=== PATIENT | female | born 1935 | race Caucasian/White ===

== ENCOUNTER 2017-05-14 14:46 | Inpatient (IN) | payer OTHER ==
[~2017-05-14] VITALS: Ht 160 cm; Wt 56.6 kg
[~2017-05-14 14:46] MED LIST: ANALGESIC325 MG PO; BONIVA150 MG PO; Levothroid,Synthroid PO; METOPROLOL SUCC25 MG PO; NORCO 5/3251 TABLET PO; XALATAN2.5 ML BOTH EYES; XARELTO20 MG PO; ZENPEP DR 5,001 EACH PO
[2017-05-14 15:23] LABS: BASOPHIL (%) 0.4 % (0-1); EOSINOPHIL (%) 0.8 % (0-5); HEMATOCRIT 39.4 % (36.0-46.0); HEMOGLOBIN 13.3 G/DL (11.9-15.5); IMMATURE GRANULOCYTE (%) 0.2 % (0.0-0.7); LYMPHOCYTE (%) 14.3 % (15-42); LYMPHOCYTE COUNT 0.7 K/uL (1.0-2.8); MCHC 33.8 G/DL (30.0-36.0); MCV 94.7 FL (83-99); MONOCYTE (%) 10.3 % (3-12); MONOCYTE COUNT 0.5 K/uL (0-0.8); NEUTROPHIL COUNT 3.7 K/uL (1.8-6.4); PLATELET COUNT 208 K/uL (156-360); RBC DIS.WIDTH-CV 13.3 % (11.8-14.6); RBC DIS.WIDTH-SD 46.5 % (39-53); RED BLOOD COUNT 4.16 M/uL (3.80-5.20)
[2017-05-14 15:31] LABS: INTER. NORMALIZED RATIO 1.3
[2017-05-14 15:33] LABS: PTT 32.3 SEC (25-37)
[2017-05-14 15:45] LABS: TROP-I INTERPRETATION NEGATIVE; TROPONIN-I 0.04 ng/mL (0.0-0.30)
[2017-05-14 15:47] LABS: ALBUMIN 3.7 g/dL (3.2-4.8); CHLORIDE 102 mEq/L (99-109); POTASSIUM 3.9 mEq/L (3.7-5.4); SODIUM 138 mEq/L (136-147)
[2017-05-14 15:48] LABS: MAGNESIUM 1.9 mg/dL (1.3-2.7)
[2017-05-14 15:50] LABS: GLUCOSE 102 mg/dL (70-99); TOTAL PROTEIN 7.2 g/dL (6.4-8.3)
[2017-05-14 15:52] LABS: TOTAL BILIRUBIN 0.3 mg/dL (0.0-1.0)
[2017-05-14 15:53] LABS: ALKALINE PHOSPHATASE 76 IU/L (3-129); GFR ESTIMATE (CALCULATED) 56 mL/min/
[2017-05-14 15:55] LABS: AST (GOT) 29 IU/L (2-34); UREA NITROGEN (BUN) 18 mg/dL (9-23)
[2017-05-14 15:56] LABS: ALT (GPT) 23 IU/L (3-49)
[2017-05-14 16:14] LABS: CKMB RELATIVE INDEX 3.3 (0.0-3.9); CREATINE KINASE 92 IU/L (1-294); TOTAL CK 92 IU/L (1-294)
[2017-05-14] MEDS ORDERED: PRAVACHOL10 MG PO (16:18)
[2017-05-14] MEDS ORDERED: DILTIAZEM 24HR120 MG PO ×2 (16:18→17:50)
[2017-05-14] MEDS ORDERED: SYNTHROID25 MCG PO (16:20)
[2017-05-14 17:15] LABS: THYROTROPIN (TSH) 2.6 MIU/L (0.4-5.5)
[2017-05-14] MEDS ORDERED: CENTRUM SILVER1 EAC4 PO (17:51)
[2017-05-14] MEDS ORDERED: ARTIFICIAL TEAR1510 BOTH EYES (17:53)
[2017-05-14] MEDS ORDERED: TYLENOL EXTRA500 MG PO (17:53)
[2017-05-14] MEDS ORDERED: CALCIUM + VITA1 EAC2 PO (17:53)
[2017-05-14] MEDS ORDERED: CO Q-10100 MG PO (17:54)
[2017-05-14] MEDS ORDERED: CALCIUM-MAG-ZI1 EACH PO (17:56)
[2017-05-14 19:25] LABS: APPEARANCE CLEAR ((CLEAR)); BILIRUBIN NEGATIVE; BLOOD SMALL; COLOR STRAW ((YELLOW)); GLUCOSE (STRIP) NEGATIVE; KETONES 5; LEUKOCYTES NEGATIVE; NITRITE NEGATIVE; PROTEIN (STRIP) NEGATIVE; SPECIFIC GRAVITY 1.004 (1.000-1.030); UROBILINOGEN 0.2 MG/DL (0.2-1.0)
[2017-05-14 19:36] LABS: BACTERIA RARE /HPF; EPITHELIAL CELLS RARE /HPF; MUCUS NONE SEEN /LPF; RED BLOOD CELLS 0-5 /HPF (0-5); WHITE BLOOD CELLS 0-5 /HPF (0-5)
[2017-05-14 20:20] VITALS: BP 159/71
[2017-05-14 20:30] VITALS: BP 130/83
[2017-05-14 22:52] LABS: TROP-I INTERPRETATION NEGATIVE; TROPONIN-I 0.18 ng/mL (0.0-0.30)
[2017-05-15] VITALS (7 sets, daily range): BP systolic 116–138; BP diastolic 63–91
[2017-05-15 04:46] LABS: TROP-I INTERPRETATION NEGATIVE; TROPONIN-I 0.13 ng/mL (0.0-0.30)
[2017-05-16 03:26] VITALS: BP 113/71
[2017-05-16 09:00] VITALS: BP 131/92
[2017-05-16 12:12] VITALS: BP 135/89
[2017-05-16] MEDS ORDERED: CARDIZEM CD300 MG PO (14:40)
[2017-05-16 15:42] VITALS: BP 114/74
== END 2017-05-16 16:38 | disposition home or self-care (01) | DRG 310 ==
LOC: EME 14:46 → EDOF 19:02 → ENRESERV 19:04 → 4EAST 20:29
PROVIDERS: Emergency Medicine; Hospitalist
DX: I48.0 Paroxysmal atrial fibrillation (principal); I48.1 Persistent atrial fibrillation; M85.80 Other specified disorders of bone density and structure, unspecified site; E73.9 Lactose intolerance, unspecified; E03.9 Hypothyroidism, unspecified; I10 Essential (primary) hypertension; I48.92 Unspecified atrial flutter; Z79.01 Long term (current) use of anticoagulants; Z87.891 Personal history of nicotine dependence; Z90.710 Acquired absence of both cervix and uterus; Z80.3 Family history of malignant neoplasm of breast
CPT/HCPCS: 71010; 80053; 81003; 82550; 82553; 83735; 83880; 84439; 84443; 84484; 85025; 85610; 85730; 93005; 99281; 99285; J7050